=== PATIENT | female | born 1990 | race Caucasian/White ===

== ENCOUNTER 2017-05-06 01:21 | Emergency (ER) | payer OTHER ==
[2017-05-06 03:03] LABS: INFLUENZA A AMPLIFICATION NEGATIVE (NEGATIVE); INFLUENZA B AMPLIFICATION NEGATIVE (NEGATIVE)
[2017-05-06] MEDS: methylPREDNISolone INJ 125 MG/2 ML VIAL (J2930) IM (03:15)
[2017-05-06] MEDS: AUGMENTIN 875 MG TAB PO (03:36)
== END 2017-05-06 04:24 | disposition home or self-care (01) ==
LOC: M ED 01:21
DX: J40 Bronchitis, not specified as acute or chronic (principal); J45.909 Unspecified asthma, uncomplicated; K21.9 Gastro-esophageal reflux disease without esophagitis; F17.210 Nicotine dependence, cigarettes, uncomplicated; Z79.899 Other long term (current) drug therapy
CPT/HCPCS: J2930

== ENCOUNTER 2018-02-25 02:26 | Emergency (ER) | payer OTHER ==
[2018-02-25] MEDS: NS 1,000 ML IV ×2 (03:00→03:30)
[2018-02-25] MEDS: METOCLOPRAMIDE INJ 10MG/2ML VIAL (J2765) IV (03:04)
[2018-02-25 03:08] LABS: BASO % 0.2 % (0.0-1.0); HEMATOCRIT 48.5 % (36.0-47.0); HEMOGLOBIN 16.4 g/dl (12.0-15.5); IMMATURE GRANULOCYTE % 0.3 % (0-3.0); LYMPH # 0.7 10^3/uL (1.5-6.5); LYMPH % 4.7 % (24.0-44.0); MEAN CORPUSCULAR HEMOGLOBIN 29.7 pg (27.0-33.0); MEAN CORPUSCULAR HGB CONC 33.8 g/dl (32.0-36.5); MEAN CORPUSCULAR VOLUME 87.7 fl (80.0-96.0); MONO # 0.9 10^3/uL (0.0-0.8); MONO % 5.8 % (0.0-5.0); NEUTROPHILS # 13.8 10^3/uL (1.8-7.7); PLATELET COUNT, AUTOMATED 417 10^3/uL (150-450); RED BLOOD COUNT 5.53 10^6/uL (4.00-5.40); RED CELL DISTRIBUTION WIDTH 13.4 % (11.5-14.5); WHITE BLOOD COUNT 15.5 10^3/uL (4.0-10.0)
[2018-02-25 03:31] LABS: LACTIC ACID SEPSIS PROTOCOL 1.1 MMOL/L (0.4-2.0)
[2018-02-25 03:36] LABS: ALBUMIN 4.6 GM/DL (3.2-5.2); ALBUMIN/GLOBULIN RATIO 1.24 (1.00-1.93); ALKALINE PHOSPHATASE 94 U/L (45-117); ALT/SGPT 33 U/L (12-78); ANION GAP 11 MEQ/L (8-16); AST/SGOT 17 U/L (7-37); BILIRUBIN,DIRECT 0.2 MG/DL (0.0-0.2); BLOOD UREA NITROGEN 21 MG/DL (7-18); CALCIUM LEVEL 9.5 MG/DL (8.5-10.1); CARBON DIOXIDE LEVEL 20 MEQ/L (21-32); CHLORIDE LEVEL 108 MEQ/L (98-107); GLOMERULAR FILTRATION RATE > 60.0 (>60); GLUCOSE, FASTING 125 MG/DL (70-100); LIPASE 67 U/L (73-393); POTASSIUM SERUM 4.3 MEQ/L (3.5-5.1); SODIUM LEVEL 139 MEQ/L (136-145); TOTAL PROTEIN 8.3 GM/DL (6.4-8.2)
== END 2018-02-25 05:17 | disposition home or self-care (01) ==
LOC: M ED 02:26
DX: K52.9 Noninfective gastroenteritis and colitis, unspecified (principal); J45.909 Unspecified asthma, uncomplicated; K21.9 Gastro-esophageal reflux disease without esophagitis; Z79.899 Other long term (current) drug therapy
CPT/HCPCS: J2765

== ENCOUNTER → 2020-08-24 | Outpatient (CLI) | payer OTHER ==
[~2020-08-24] MED LIST: AUGM500T34 PO; CETI10TA PO; OMEP1CAP73 PO; PRED20TA PO; SING10TA32 PO; VENTAER IN; ZOFR4TAB14 PO
--- NOTE | 2020-08-25 18:28 | REP ---
INDICATION: THYROIDTOXICOSIS WITH DIFUSED GOITER COMPARISON: None. TECHNIQUE/RADIOTRACER AND DOSE: 352.0 uCi of Iodine-123 sodium iodide is ingested and functional thyroid images and thyroid uptake values are acquired. FINDINGS: The 24 hour uptake value is slightly elevated at 37.3% (25-35%). Functional images demonstrate homogeneous uptake in normal size thyroid lobes. No cold or warm lesion. IMPRESSION: Is mildly elevated thyroid uptake as above. Homogeneous function. No cold or warm lesion. Findings could reflect mild Graves disease. RECOMMENDATION: None. <Electronically signed by Tmi Reyes > 08/25/20 [id number]
== END ==
LOC: M RAD 14:27
PROVIDERS: ATTEND Nurse Practitioner Family
DX: E05.00 Thyrotoxicosis with diffuse goiter without thyrotoxic crisis or storm (principal)
CPT/HCPCS: 78012; A9516

== ENCOUNTER → 2021-01-02 | Outpatient (CLI) | payer MEDICAID, OTHER ==
[2021-01-02 18:20] LABS: FREE T4 0.94 NG/DL (0.76-1.46); THYROID STIMULATING HORMONE 2.26 uIU/ML (0.358-3.740)
[2021-01-02 18:21] LABS: TOTAL T3 100.6 NG/DL (60.0-181.0)
== END ==
LOC: M LAB 16:00
PROVIDERS: ATTEND Internal Medicine Endocrinology, Diabetes & Metabolism
DX: E05.00 Thyrotoxicosis with diffuse goiter without thyrotoxic crisis or storm (principal)

== ENCOUNTER → 2021-03-29 | Outpatient (CLI) | payer OTHER ==
[2021-03-29 16:09] LABS: FREE T4 1.49 NG/DL (0.76-1.46); THYROID STIMULATING HORMONE 0.544 uIU/ML (0.358-3.740)
== END ==
LOC: M LAB 14:52
PROVIDERS: ATTEND Internal Medicine Endocrinology, Diabetes & Metabolism
DX: E05.00 Thyrotoxicosis with diffuse goiter without thyrotoxic crisis or storm (principal)

== ENCOUNTER → 2021-06-05 | Outpatient (CLI) | payer OTHER ==
[2021-06-05 10:02] LABS: FREE T4 1.26 NG/DL (0.76-1.46); THYROID STIMULATING HORMONE 0.724 uIU/ML (0.358-3.740)
== END ==
LOC: M LAB 08:41
PROVIDERS: ATTEND Nurse Practitioner Family
DX: E89.0 Postprocedural hypothyroidism (principal)

== ENCOUNTER 2021-08-13 23:18 | Emergency (ER) | payer OTHER ==
[~2021-08-13] VITALS: Ht 154.9 cm; Wt 111.4 kg
[2021-08-13 23:18] VITALS: BP 130/78
[2021-08-14] MEDS ORDERED: IBUPROFEN 600MG TAB PO ONE (00:50)
== END 2021-08-14 01:49 | disposition home or self-care (01) ==
LOC: M ED 23:18
DX: M79.641 Pain in right hand (principal); M89.8X4 Other specified disorders of bone, hand; J45.909 Unspecified asthma, uncomplicated; K21.9 Gastro-esophageal reflux disease without esophagitis; Z79.899 Other long term (current) drug therapy

== ENCOUNTER → 2021-10-04 | Outpatient (CLI) | payer OTHER ==
[2021-10-04 19:20] LABS: FREE T4 1.19 NG/DL (0.76-1.46); THYROID STIMULATING HORMONE 1.83 uIU/ML (0.358-3.740)
== END ==
LOC: M LAB 15:17
PROVIDERS: ATTEND Nurse Practitioner Family
DX: E89.0 Postprocedural hypothyroidism (principal)

== ENCOUNTER 2022-05-07 06:31 | Emergency (ER) | payer OTHER ==
[~2022-05-07] VITALS: Ht 154.9 cm; Wt 123.0 kg
[2022-05-07] MEDS ORDERED: NS 1,000 ML IV ONE (08:10)
[2022-05-07] MEDS ORDERED: ONDANSETRON 4MG 2ML VIAL IV ONE (08:15)
[2022-05-07] MEDS ORDERED: MORPHINE 4 MG/ML 1ML VIAL IV ONE (08:15)
[2022-05-07] MEDS ORDERED: PANTOPRAZOLE 40MG VIAL IV ONE (08:15)
[2022-05-07 08:46] LABS: BASO # 0.1 10^3/uL (0.0-0.2); BASO % 0.5 % (0.0-1.0); EOS # 0.3 10^3/uL (0.0-0.5); EOS % 2.8 % (0.0-3.0); HEMATOCRIT 40.4 % (36.0-47.0); HEMOGLOBIN 13.2 g/dl (12.0-15.5); LYMPH # 3.6 10^3/uL (1.5-5.0); LYMPH % 33.5 % (24.0-44.0); MEAN CORPUSCULAR HGB CONC 32.7 g/dl (32.0-36.5); MEAN CORPUSCULAR VOLUME 85.6 fl (80.0-96.0); MONO # 0.6 10^3/uL (0.0-0.8); MONO % 5.9 % (2.0-8.0); NEUTROPHILS # 6.2 10^3/uL (1.5-8.5); NEUTROPHILS % 57.1 % (36.0-66.0); PLATELET COUNT, AUTOMATED 443 10^3/uL (150-450); RED BLOOD COUNT 4.72 10^6/uL (4.00-5.40); WHITE BLOOD COUNT 10.8 10^3/uL (4.0-10.0)
[2022-05-07 09:14] LABS: RSV AMPLIFICATION NEGATIVE (NEGATIVE)
[2022-05-07 09:20] LABS: INR 0.98; PROTHROMBIN TIME 13.2 SECONDS (12.5-14.5)
[2022-05-07 09:21] LABS: PARTIAL THROMBOPLASTIN TIME 29.8 SECONDS (24.8-34.2)
[2022-05-07 09:25] LABS: ALBUMIN 4.3 G/DL (3.2-5.2); BILIRUBIN,DIRECT 0.2 MG/DL (<0.4); BILIRUBIN,TOTAL 0.7 MG/DL (0.3-1.2); TOTAL PROTEIN 7.2 G/DL (5.7-8.2)
[2022-05-07] MEDS ORDERED: ISOVUE-370 76% 100ML VIAL As Ordered ONE (09:44)
[2022-05-07] MEDS ORDERED: KETOROLAC 30 MG/ML 1ML VIAL IV ONE (12:05)
[2022-05-07] MEDS ORDERED: COLA100C5 PO (14:32)
[2022-05-07] MEDS ORDERED: PERC5TAB12 PO (14:32)
[2022-05-07] MEDS ORDERED: ANUS2.5C2 TOP (14:32)
[2022-05-07 14:46] VITALS: BP 139/78
== END 2022-05-07 15:09 | disposition home or self-care (01) ==
LOC: M ED 06:31
DX: N13.2 Hydronephrosis with renal and ureteral calculous obstruction (principal); R11.0 Nausea; K62.5 Hemorrhage of anus and rectum; F41.9 Anxiety disorder, unspecified; F32.A Depression, unspecified; K21.9 Gastro-esophageal reflux disease without esophagitis; R51.9 Headache, unspecified; E05.90 Thyrotoxicosis, unspecified without thyrotoxic crisis or storm; E66.9 Obesity, unspecified; Z79.51 Long term (current) use of inhaled steroids; Z79.899 Other long term (current) drug therapy
CPT/HCPCS: 74177; 76856; 80047; 80076; 81001; 83605; 83690; 84702; 85025; 85610; 85730; 87631; 93976; 96361; 96374; 96375; 99284; C9113; J1885; J2270; J2405

== ENCOUNTER → 2022-05-27 | Outpatient (CLI) | payer OTHER ==
[~2022-05-27] MED LIST changes: +ANUS2.5C2 TOP; +CITA20TA6 PO; +COLA100C5 PO; +LEVO200T4 PO; +MONT-5 PO; +PERC5TAB12 PO; -SING10TA32 PO
[2022-05-27 09:11] LABS: HEMATOCRIT 38.5 % (36.0-47.0); HEMOGLOBIN 12.6 g/dl (12.0-15.5); MEAN CORPUSCULAR HEMOGLOBIN 28.8 pg (27.0-33.0); MEAN CORPUSCULAR HGB CONC 32.7 g/dl (32.0-36.5); MEAN CORPUSCULAR VOLUME 87.9 fl (80.0-96.0); PLATELET COUNT, AUTOMATED 332 10^3/uL (150-450); RED BLOOD COUNT 4.38 10^6/uL (4.00-5.40); WHITE BLOOD COUNT 8.7 10^3/uL (4.0-10.0)
[2022-05-27 09:19] LABS: INR 0.98; PROTHROMBIN TIME 13.2 SECONDS (12.5-14.5)
[2022-05-27 09:20] LABS: PARTIAL THROMBOPLASTIN TIME 28.8 SECONDS (24.8-34.2)
[2022-05-27 09:31] LABS: BLOOD UREA NITROGEN 9 MG/DL (9-23); CALCIUM LEVEL 8.6 MG/DL (8.5-10.1); CARBON DIOXIDE LEVEL 29 MMOL/L (20-31); CHLORIDE LEVEL 106 MMOL/L (98-107); CREATININE FOR GFR 0.83 MG/DL (0.55-1.30); GLOMERULAR FILTRATION RATE > 60.0 (>60); GLUCOSE, FASTING 98 MG/DL (60-100); POTASSIUM SERUM 3.9 MMOL/L (3.5-5.1); SODIUM LEVEL 141 MMOL/L (136-145)
[2022-05-27 10:06] LABS: HCG, SERUM QUALITATIVE NEGATIVE (NEGATIVE)
== END ==
LOC: M LAB 08:39
PROVIDERS: ATTEND Nurse Practitioner Women's Health
DX: N20.0 Calculus of kidney (principal); Z01.818 Encounter for other preprocedural examination

== ENCOUNTER → 2022-05-29 | Outpatient (CLI) | payer OTHER ==
[2022-05-29 14:24] LABS: APPEARANCE, URINE HAZY (CLEAR); BACTERIA, URINE AUTO NEGATIVE (NEGATIVE); BILIRUBIN, URINE AUTO NEGATIVE (NEGATIVE); BLOOD, URINE BLOOD 2+ (NEGATIVE); COLOR, URINE YELLOW (YELLOW); GLUCOSE, URINE (UA) AUTO NEGATIVE (NEGATIVE); KETONE, URINE AUTO NEGATIVE (NEGATIVE); LEUKOCYTE ESTERASE, URINE AUTO NEGATIVE (NEGATIVE); MUCUS, URINE SMALL (NEGATIVE); NITRITE, URINE AUTO NEGATIVE (NEGATIVE); PROTEIN, URINE AUTO NEGATIVE (NEGATIVE); RBC, URINE AUTO 8 /HPF (0-3); SPECIFIC GRAVITY URINE AUTO 1.025 (1.002-1.035); SQUAMOUS EPITHELIAL CELL UR AU 0 /HPF (0-6); UROBILINOGEN, URINE AUTO 0.2 mg/dL (0.0-2.0); WBC, URINE AUTO 1 /HPF (0-3)
== END ==
LOC: M LAB 12:46
PROVIDERS: ATTEND Nurse Practitioner Women's Health
DX: Z01.818 Encounter for other preprocedural examination (principal); N20.0 Calculus of kidney

== ENCOUNTER → 2022-06-03 | Outpatient (CLI) | payer OTHER | LOC: M LABSMTC 11:44 | PROVIDERS: ATTEND Anesthesiology | DX: Z01.812 Encounter for preprocedural laboratory examination (principal) ==

== ENCOUNTER 2022-06-06 07:51 | Day surgery (SDC) | payer OTHER ==
[~2022-06-06] VITALS: Ht 154.9 cm; Wt 123.6 kg
[~2022-06-06 07:51] MED LIST changes: +GLYCOPYRROLATE INJ 0.2 MG/ML 2 ML VIAL As Ordered ONE; +KETAMINE HCL 200MG/20ML VIAL As Ordered ONE; +LIDOCAINE 2% 100MG/5ML SDV (FOR ANES.) As Ordered ONE; +LR 1,000 ML IV SCH; +MIDAZOLAM INJ 2MG/2ML VIAL As Ordered ONE; +ONDANSETRON 4MG 2ML VIAL As Ordered ONE; +ceFAZolin SOD 1 GM in D5W MINI-BAG PLUS 50 ML IV ONE; +ceFAZolin SOD 2 GM in IV 1 EA IV ONE; +fentaNYL 100 MCG/2 ML INJECTION As Ordered ONE; +propofoL 200 MG/20 ML VIAL As Ordered ONE
[2022-06-06] MEDS ORDERED: FLOM0.4C39 PO (08:43)
[2022-06-06] MEDS ORDERED: PERC5TAB12 PO (08:43)
[2022-06-06 10:20] VITALS: BP 148/89
== END 2022-06-06 10:25 | disposition home or self-care (01) ==
LOC: M SDC 07:51
PROVIDERS: ATTEND Urology
DX: N20.0 Calculus of kidney (principal); J45.909 Unspecified asthma, uncomplicated; G43.909 Migraine, unspecified, not intractable, without status migrainosus; K21.9 Gastro-esophageal reflux disease without esophagitis; F32.A Depression, unspecified; F41.9 Anxiety disorder, unspecified; E89.0 Postprocedural hypothyroidism; Z87.891 Personal history of nicotine dependence; Z79.899 Other long term (current) drug therapy; Z79.890 Hormone replacement therapy
CPT/HCPCS: 50590; 74018; 81025; J0690; J2250; J2405; J3010

== ENCOUNTER → 2022-06-16 | Outpatient (CLI) | payer OTHER ==
[~2022-06-16] MED LIST changes: +FLOM0.4C39 PO; -GLYCOPYRROLATE INJ 0.2 MG/ML 2 ML VIAL As Ordered ONE; -KETAMINE HCL 200MG/20ML VIAL As Ordered ONE; -LIDOCAINE 2% 100MG/5ML SDV (FOR ANES.) As Ordered ONE; -LR 1,000 ML IV SCH; -MIDAZOLAM INJ 2MG/2ML VIAL As Ordered ONE; -ONDANSETRON 4MG 2ML VIAL As Ordered ONE; -ceFAZolin SOD 1 GM in D5W MINI-BAG PLUS 50 ML IV ONE; -ceFAZolin SOD 2 GM in IV 1 EA IV ONE; -fentaNYL 100 MCG/2 ML INJECTION As Ordered ONE; -propofoL 200 MG/20 ML VIAL As Ordered ONE
== END ==
LOC: M RAD 16:15 → M LAB 16:15
PROVIDERS: ATTEND Urology
DX: N20.0 Calculus of kidney (principal)

== ENCOUNTER → 2023-02-18 | Outpatient (REF) | payer OTHER ==
[2023-02-18 18:10] LABS: ALBUMIN 3.8 G/DL (3.2-5.2); ALKALINE PHOSPHATASE 63 U/L (46-116); ALT/SGPT 24 U/L (7.0-40); AST/SGOT 15 U/L (<34); BILIRUBIN,TOTAL 0.8 MG/DL (0.3-1.2); BLOOD UREA NITROGEN 12 MG/DL (9-23); CALCIUM LEVEL 8.9 MG/DL (8.5-10.1); CARBON DIOXIDE LEVEL 28 MMOL/L (20-31); CHLORIDE LEVEL 107 MMOL/L (98-107); CHOLESTEROL LEVEL 156 MG/DL (<200); CHOLESTEROL RISK RATIO 3.07 (<5); CREATININE FOR GFR 0.93 MG/DL (0.55-1.30); GLOMERULAR FILTRATION RATE > 60.0 (>60); GLUCOSE, FASTING 86 MG/DL (60-100); HDL CHOLESTEROL 50.8 MG/DL (>40); LDL CHOLESTEROL 86.6 MG/DL (<100); NON-HDL-C 105.2 MG/DL; POTASSIUM SERUM 4.2 MMOL/L (3.5-5.1); SODIUM LEVEL 139 MMOL/L (136-145); THYROID STIMULATING HORMONE 8.207 uIU/ML (0.55-4.78); TOTAL PROTEIN 6.5 G/DL (5.7-8.2); TRIGLYCERIDES LEVEL 93 MG/DL (<150)
== END ==
LOC: M LAB REF 16:42
PROVIDERS: ATTEND Family Medicine Addiction Medicine
DX: E03.9 Hypothyroidism, unspecified (principal)

== ENCOUNTER → 2023-08-12 | Outpatient (CLI) | payer OTHER ==
[2023-08-12 18:09] LABS: HEMATOCRIT 36.2 % (36.0-47.0); HEMOGLOBIN 11.8 g/dl (12.0-15.5); MEAN CORPUSCULAR HEMOGLOBIN 27.8 pg (27.0-33.0); MEAN CORPUSCULAR HGB CONC 32.6 g/dl (32.0-36.5); MEAN CORPUSCULAR VOLUME 85.2 fl (80.0-96.0); PLATELET COUNT, AUTOMATED 419 10^3/uL (150-450); RED BLOOD COUNT 4.25 10^6/uL (4.00-5.40)
[2023-08-12 18:10] LABS: LDH LACTATE DEHYDROGENASE 213 U/L (120-246)
[2023-08-12 18:11] LABS: ALT/SGPT 25 U/L (7.0-40); AST/SGOT 15 U/L (<34); BILIRUBIN,TOTAL 0.6 MG/DL (0.3-1.2); CREATININE FOR GFR 0.66 MG/DL (0.55-1.30); GLOMERULAR FILTRATION RATE > 60.0 (>60)
[2023-08-12 18:12] LABS: THYROID STIMULATING HORMONE 0.374 uIU/ML (0.55-4.78)
[2023-08-12 18:13] LABS: FREE T4 1.54 NG/DL (0.89-1.76)
[2023-08-12 18:14] LABS: CREATININE,RANDOM URINE 65.9 MG/DL
[2023-08-12 18:23] LABS: TOTAL PROTEIN,RANDOM URINE < 6.0 MG/DL (0.0-14.0)
[2023-08-12 18:43] LABS: HIV 1&2 SCREEN NEGATIVE (NEGATIVE)
[2023-08-12 18:51] LABS: HEPATITIS C VIRUS ABY INDEX < 0.02 INDEX (<0.8)
[2023-08-12 19:57] LABS: GC DNA AMPLIFICATION NEGATIVE (NEGATIVE)
== END ==
LOC: M PLALAB 15:04
PROVIDERS: ATTEND Advanced Practice Midwife
DX: Z34.81 Encounter for supervision of other normal pregnancy, first trimester (principal)

== ENCOUNTER → 2023-09-29 | Outpatient (REF) | payer OTHER | LOC: M LAB REF 17:14 | PROVIDERS: ATTEND Family Medicine Addiction Medicine | DX: E03.9 Hypothyroidism, unspecified (principal) ==

== ENCOUNTER → 2023-10-13 | Outpatient (CLI) | payer OTHER | LOC: M WHC 13:51 | PROVIDERS: ATTEND Advanced Practice Midwife | DX: Z34.82 Encounter for supervision of other normal pregnancy, second trimester (principal) ==

== ENCOUNTER → 2023-11-24 | Outpatient (CLI) | payer OTHER ==
[2023-11-24 11:40] LABS: HEMATOCRIT 31.9 % (36.0-47.0); HEMOGLOBIN 10.3 g/dl (12.0-15.5); MEAN CORPUSCULAR HEMOGLOBIN 26.6 pg (27.0-33.0); MEAN CORPUSCULAR HGB CONC 32.3 g/dl (32.0-36.5); MEAN CORPUSCULAR VOLUME 82.4 fl (80.0-96.0); PLATELET COUNT, AUTOMATED 403 10^3/uL (150-450); RED BLOOD COUNT 3.87 10^6/uL (4.00-5.40); WHITE BLOOD COUNT 16.3 10^3/uL (4.0-10.0)
[2023-11-24 12:08] LABS: GLUCOSE CHALLENGE TEST 1 HOUR 128 MG/DL (LESS THAN 140)
[2023-11-24 12:13] LABS: THYROID STIMULATING HORMONE 14.216 uIU/ML (0.55-4.78)
[2023-11-24 12:14] LABS: FREE T4 1.13 NG/DL (0.89-1.76)
[2023-11-24 12:21] LABS: GC DNA AMPLIFICATION NEGATIVE (NEGATIVE)
[2023-11-24 12:39] LABS: HIV 1&2 SCREEN NEGATIVE (NEGATIVE)
[2023-11-24 12:46] LABS: HEPATITIS C VIRUS ABY INDEX < 0.02 INDEX (<0.8)
== END ==
LOC: M LAB 08:58
PROVIDERS: ATTEND Nurse Practitioner Women's Health
DX: O99.282 Endocrine, nutritional and metabolic diseases complicating pregnancy, second trimester (principal)

== ENCOUNTER → 2023-12-11 | Outpatient (REF) | payer OTHER ==
[2023-12-11 18:56] LABS: TOTAL PROTEIN,RANDOM URINE 19.2 MG/DL (0.0-14.0)
[2023-12-11 19:00] LABS: CREATININE,RANDOM URINE 132.6 MG/DL
== END ==
LOC: M SFHCWAGY 17:10
PROVIDERS: ATTEND Obstetrics & Gynecology
DX: Z34.83 Encounter for supervision of other normal pregnancy, third trimester (principal)

== ENCOUNTER → 2023-12-11 | Outpatient (CLI) | payer OTHER | LOC: M RAD 10:10 | PROVIDERS: ATTEND Nurse Practitioner Women's Health | DX: Z34.82 Encounter for supervision of other normal pregnancy, second trimester (principal) ==

== ENCOUNTER → 2023-12-26 | Outpatient (CLI) | payer OTHER | LOC: M RAD 15:25 | PROVIDERS: ATTEND Nurse Practitioner Women's Health | DX: Z34.82 Encounter for supervision of other normal pregnancy, second trimester (principal); Z3A.29 29 weeks gestation of pregnancy ==

== ENCOUNTER → 2023-12-26 | Outpatient (CLI) | payer OTHER ==
[2023-12-26 18:23] LABS: HEMATOCRIT 29.6 % (36.0-47.0); HEMOGLOBIN 9.7 g/dl (12.0-15.5); MEAN CORPUSCULAR HEMOGLOBIN 26.4 pg (27.0-33.0); MEAN CORPUSCULAR HGB CONC 32.8 g/dl (32.0-36.5); MEAN CORPUSCULAR VOLUME 80.7 fl (80.0-96.0); PLATELET COUNT, AUTOMATED 376 10^3/uL (150-450); RED BLOOD COUNT 3.67 10^6/uL (4.00-5.40); WHITE BLOOD COUNT 14.8 10^3/uL (4.0-10.0)
[2023-12-26 18:49] LABS: URIC ACID 4.8 MG/DL (3.1-7.8)
[2023-12-26 18:51] LABS: LDH LACTATE DEHYDROGENASE 233 U/L (120-246)
[2023-12-26 18:53] LABS: ALT/SGPT 15 U/L (7.0-40); AST/SGOT 12 U/L (<34); BILIRUBIN,TOTAL 0.4 MG/DL (0.3-1.2); CREATININE FOR GFR 0.64 MG/DL (0.55-1.30); GLOMERULAR FILTRATION RATE > 60.0 (>60)
== END ==
LOC: M PLALAB 16:20
PROVIDERS: ATTEND Obstetrics & Gynecology
DX: Z34.83 Encounter for supervision of other normal pregnancy, third trimester (principal); Z3A.00 Weeks of gestation of pregnancy not specified

== ENCOUNTER → 2024-01-09 | Outpatient (CLI) | payer OTHER ==
[2024-01-09 15:38] LABS: HEMATOCRIT 29.9 % (36.0-47.0); HEMOGLOBIN 9.6 g/dl (12.0-15.5); MEAN CORPUSCULAR HEMOGLOBIN 26.6 pg (27.0-33.0); MEAN CORPUSCULAR HGB CONC 32.1 g/dl (32.0-36.5); MEAN CORPUSCULAR VOLUME 82.8 fl (80.0-96.0); PLATELET COUNT, AUTOMATED 364 10^3/uL (150-450); RED BLOOD COUNT 3.61 10^6/uL (4.00-5.40); WHITE BLOOD COUNT 15.3 10^3/uL (4.0-10.0)
[2024-01-09 16:04] LABS: URIC ACID 5.3 MG/DL (3.1-7.8)
[2024-01-09 16:06] LABS: LDH LACTATE DEHYDROGENASE 178 U/L (120-246)
[2024-01-09 16:07] LABS: ALT/SGPT 11 U/L (7.0-40); AST/SGOT < 8 U/L (<34); BILIRUBIN,TOTAL 0.4 MG/DL (0.3-1.2); CREATININE FOR GFR 0.67 MG/DL (0.55-1.30); GLOMERULAR FILTRATION RATE > 60.0 (>60)
[2024-01-09 16:08] LABS: THYROID STIMULATING HORMONE 3.308 uIU/ML (0.55-4.78)
[2024-01-09 16:09] LABS: FREE T4 1.46 NG/DL (0.89-1.76)
== END ==
LOC: M PLALAB 10:35
PROVIDERS: ATTEND Obstetrics & Gynecology
DX: O13.3 Gestational [pregnancy-induced] hypertension without significant proteinuria, third trimester (principal); O99.283 Endocrine, nutritional and metabolic diseases complicating pregnancy, third trimester; E89.0 Postprocedural hypothyroidism

== ENCOUNTER → 2024-01-13 | Outpatient (CLI) | payer OTHER | LOC: M RAD 12:12 | PROVIDERS: ATTEND Advanced Practice Midwife | DX: Z34.83 Encounter for supervision of other normal pregnancy, third trimester (principal); Z3A.32 32 weeks gestation of pregnancy ==

== ENCOUNTER → 2024-02-03 | Outpatient (REF) | payer OTHER | LOC: M SFHCWAGY 16:40 | PROVIDERS: ATTEND Specialist | DX: Z36.85 Encounter for antenatal screening for Streptococcus B (principal); O13.9 Gestational [pregnancy-induced] hypertension without significant proteinuria, unspecified trimester ==

== ENCOUNTER → 2024-02-18 | Outpatient (CLI) | payer OTHER ==
[~2024-02-18] MED LIST changes: +LABE100T40 PO
== END ==
LOC: M WHC 12:09
PROVIDERS: ATTEND Obstetrics & Gynecology
DX: O28.8 Other abnormal findings on antenatal screening of mother (principal); Z3A.37 37 weeks gestation of pregnancy

== ENCOUNTER → 2024-02-23 | Outpatient (CLI) | payer OTHER ==
[~2024-02-23] MED LIST changes: +BUPR-597 PO; +FERR325T19 PO; +IBUP80TA PO; +METO10TA2 PO; +OXYC1TAB23 PO; +SERT25TA21 PO
== END ==
LOC: M WHC 12:54
PROVIDERS: ATTEND Obstetrics & Gynecology
DX: O13.3 Gestational [pregnancy-induced] hypertension without significant proteinuria, third trimester (principal); Z3A.37 37 weeks gestation of pregnancy